=== PATIENT | female | born 1975 | race Caucasian/White ===

== ENCOUNTER → 2017-05-23 | Outpatient (CLI) | payer BC ==
--- NOTE | 2017-05-30 08:26 | Diagnostic Imaging Report ---
#[id number] - [facility] #BILATERAL DIGITAL SCREENING MAMMOGRAM WITH CAD: 05/23/2017 CLINICAL: Routine screening. Comparison is made to exams dated: 02/28/2016 mammogram, 01/11/2015 mammogram and 12/31/2013 mammogram - [facility]. Current study contains 4 films. The tissue of both breasts is heterogeneously dense. This may lower the sensitivity of mammography. Current study was also evaluated with a Computer Aided Detection (CAD) system. There are benign lymph nodes in both breasts. There also are benign calcifications and a stable benign nodule in the right breast. No significant masses, calcifications, or other findings are seen in either breast. There has been no significant interval change. IMPRESSION: BENIGN There is no mammographic evidence of malignancy. A 1 year screening mammogram is recommended. The patient will be notified by letter of the results. Carroll Myles Jr., D.O. cw/:05/29/2017 14:36:57 Rate Analyst: Lizzie ROSS(Diego)(M), [facility] letter sent: Compared to Prior B9 Mammogram BI-RADS: 2 Benign
== END ==
LOC: MAMMO 08:36
PROVIDERS: ATTEND Obstetrics & Gynecology
DX: Z12.31 Encounter for screening mammogram for malignant neoplasm of breast (principal)

== ENCOUNTER → 2020-10-19 | Outpatient (CLI) | payer BC | LOC: MAMMO 10:40 | PROVIDERS: ATTEND Obstetrics & Gynecology | DX: Z12.31 Encounter for screening mammogram for malignant neoplasm of breast (principal) | CPT/HCPCS: 77067 ==

== ENCOUNTER → 2021-09-05 | Outpatient (CLI) | payer OTHER | LOC: MAMMO 11:12 | PROVIDERS: ATTEND Obstetrics & Gynecology | DX: Z12.31 Encounter for screening mammogram for malignant neoplasm of breast (principal) | CPT/HCPCS: 77067 ==

== ENCOUNTER → 2022-10-17 | Outpatient (CLI) | payer OTHER | LOC: MAMMO 10:51 | PROVIDERS: ATTEND Obstetrics & Gynecology | DX: Z12.31 Encounter for screening mammogram for malignant neoplasm of breast (principal) | CPT/HCPCS: 77067 ==

== ENCOUNTER → 2024-01-10 | Outpatient (REF) | payer BC | LOC: MAMMO 13:45 | PROVIDERS: ATTEND Obstetrics & Gynecology | DX: Z12.31 Encounter for screening mammogram for malignant neoplasm of breast (principal) | CPT/HCPCS: 77067 ==